=== PATIENT | female | born 1935 | race African-American/Black ===

== ENCOUNTER 2017-06-23 17:09 | Emergency (ER) | payer MEDICARE ==
[~2017-06-23] VITALS: Ht 165.1 cm; Wt 79.0 kg
[~2017-06-23 17:09] MED LIST: AMOX1TAB16 PO; ASPI-1159 PO; CLON0.2T PO; DAILY-VITE PO; FOLI-43 PO; LOSA1TAB40 PO; METH2.5T PO
[2017-06-23] MEDS ORDERED: ACETAMINOPHEN WITH CODEINE 300/30MG TABLET PO STA (18:01)
[2017-06-23] MEDS ORDERED: CLONIDINE 0.1MG TABLET PO ONE (18:15)
[2017-06-23 18:18] VITALS: BP 197/126
== END 2017-06-23 19:37 | disposition home or self-care (01) ==
LOC: ER 17:52
DX: S93.491A Sprain of other ligament of right ankle, initial encounter (principal); I10 Essential (primary) hypertension; Z79.82 Long term (current) use of aspirin; Z86.73 Personal history of transient ischemic attack (TIA), and cerebral infarction without residual deficits; Z98.890 Other specified postprocedural states; W18.39XA Other fall on same level, initial encounter; Y93.89 Activity, other specified; Y92.89 Other specified places as the place of occurrence of the external cause; Y99.8 Other external cause status
CPT/HCPCS: 93971; 99284